=== PATIENT | female | born 1995 | race Caucasian/White ===

== ENCOUNTER → 2016-05-08 | Outpatient (CLI) | payer OTHER ==
[~2016-05-08] MED LIST: ACHD5005 PO; DCS100C PO; FERR-57 PO; LVF500T PO; METH0.2T45 PO; METR500T PO; MTR500T PO; SERT50TA PO
--- OUTSIDE RECORDS SUMMARY | 2016-05-08 12:58 | XMS REPORT | Continuity of Care Document ---
Author Author [facility] Organization [facility] Address Unknown Phone Unavailable Care Team Providers Care Billet Inspector Name Role Phone NO, LOCAL PHYSICIAN PCP Unavailable Insurance Providers Payer Name Policy Number Subscriber Name Relationship [facility] [id number] Renetta Elliott 18 Self / Same As Patient Advance Directives Directive Response Recorded Date/Time Advance Directives No 04/03/14 10:23pm Health Care Power of Fish Technologist No 04/03/14 10:23pm Organ Donor Yes 04/03/14 10:23pm Resuscitation Status Full Code 04/03/14 10:23pm Problems Medical Problems Problem Onset Date Status Abnormal computed tomography of abdomen and pelvis Unknown Active Medications Medication Dose Route Sig Days/Qty Instructions Order Date Discontinued Date Status Methylergonovine Maleate 0.2 Mg PO GIVE EVERY 6 HR ON SCHEDULE 12 Qty 11/19/12 04/03/14 Discontinued Metronidazole 500 Mg PO THREE TIMES A DAY 30 Qty 11/19/12 04/03/14 Discontinued Levofloxacin 500 Mg PO DAILY@11 10 Qty 11/19/12 04/03/14 Discontinued Ferrous Sulfate 325 Mg PO DAILY 30 Qty 11/19/12 12/01/12 Discontinued Sertraline HCl 50 Mg PO DAILY 12/01/12 04/03/14 Discontinued Docusate Sodium 100 Mg PO TWICE A DAY 60 Qty 04/06/14 Active Acetaminophen/Hydrocodone Bitart (Hydrocodone/APAP 5/325mg) 1 Tab PO EVERY 4HRS PRN pain 30 Qty 04/06/14 Active Metronidazole 1 Each PO TWICE A DAY 7 Days 04/06/14 Active Social History Social History Problem Response Recorded Date/Time Alcohol Use Denies Use 04/03/2014 10:23pm Recreational Drug Use No 04/03/2014 10:23pm Recent Foreign Travel No 04/03/2014 10:26pm Recent Infectious Disease Exposure No 04/03/2014 10:23pm Hospitalization with Isolation Denies 04/09/2014 2:51pm Sexually Transmitted Disease No 04/03/2014 10:23pm HIV/AIDS No 04/03/2014 10:23pm Smoking Status Never a Smoker 04/03/2014 10:26pm Query Response Start Date Stop Date Smoking Status Never a Smoker Hospital Discharge Instructions No hospital discharge instructions. Plan of Care No plan of care. Functional Status Query Response Date Recorded Patient Orientation Person Place Time Situation Normal For Age April 09, 2014 2:51pm Comprehension Ability Understands Concepts April 03, 2014 10:00pm Allergies, Adverse Reactions, Alerts Allergen Type Severity Reaction Status Last Updated No Known Drug Allergies Active 11/18/12 Immunizations Name Given Type Hepatitis A No Historical Hepatitis B Yes Historical Tetanus Booster (TDap) More than 5yrs Historical influenza, split (incl. purified surface antigen) 04/06/14 Administered influenza, split (incl. purified surface antigen) 04/06/14 Administered Vital Signs Acute Vital Signs Vital Response Date/Time Temperature (Fahrenheit) 97.1 degrees F (97.6 - 99.5) Temperature (Calculated Celsius) 36.82263 degrees C (36.4 - 37.5) Temperature Source Tympanic Pulse Rate (adult) 78 bpm (60 - 90) Pulse Rate (Adolescent 12-19yrs) 82 bpm (56 - 106) Respiratory Rate 18 bpm (12 - 24) O2 Sat by Pulse Oximetry 97 % (88 - 100) Respiratory Rate (Adolescent 12-19yrs) 18 bpm (15 - 20) Blood Pressure 96/59 mm Hg Blood Pressure Systolic (Adolescent 12-19yrs) 144 mm Hg (115 - 120) Pain Pain Intensity 3 Height (Feet) 5 feet Height (Inches) 4.00 inches Height (Calculated Centimeters) 162.355731 cm Weight (Pounds) 178 pounds Weight (Calculated Grams) 06341.443 gm Weight (Calculated Kilograms) 80.236527 kilograms Calculated BMI 30.55 Results Laboratory Results Test Name Result Units Flags Reference Collection Date/Time Result Date/ Time Comments White Blood Count 6.7 10^3/uL 4.3-11.0 04/05/2014 4:04/05/2014 5: 21am Red Blood Count 4.08 10^6/uL L 4.35-5.85 04/05/2014 4:04/05/2014 5: 21am Hemoglobin 12.6 G/DL 11.5-16.0 04/05/2014 4:04/05/2014 5:21am Hematocrit 37 % 35-52 04/05/2014 4:04/05/2014 5:21am Mean Corpuscular Volume 90 FL 80-99 04/05/2014 4:04/05/2014 5: 21am Mean Corpuscular Hemoglobin 31 PG 25-34 04/05/2014 4:04/05/2014 5: 21am Mean Corpuscular Hemoglobin Concent 34 G/DL 32-36 04/05/2014 4: 5:21am Red Cell Distribution Width 12.2 % 10.0-14.5 04/05/2014 4:2014 5:21am Platelet Count 202 10^3/uL 130-400 04/05/2014 4:04/05/2014 5:21am Mean Platelet Volume 10.9 FL H 7.4-10.4 04/05/2014 4:04/05/2014 5: 21am Neutrophils (%) (Auto) 52 % 42-75 04/05/2014 4:04/05/2014 5:21am Lymphocytes (%) (Auto) 37 % 12-44 04/05/2014 4:04/05/2014 5:21am Monocytes (%) (Auto) 9 % 0-12 04/05/2014 4:04/05/2014 5:21am Eosinophils (%) (Auto) 3 % 0-10 04/05/2014 4:04/05/2014 5:21am Basophils (%) (Auto) 0 % 0-10 04/05/2014 4:04/05/2014 5:21am Neutrophils # (Auto) 3.5 X 10^3 1.8-7.8 04/05/2014 4:22am 04/05/2014 5: 21am Lymphocytes # (Auto) 2.5 X 10^3 1.0-4.0 04/05/2014 4:04/05/2014 5: 21am Monocytes # (Auto) 0.6 X 10^3 0.0-1.0 04/05/2014 4:04/05/2014 5: 21am Eosinophils # (Auto) 0.2 10^3/uL 0.0-0.3 04/05/2014 4:22am 04/05/2014 5 :21am Basophils # (Auto) 0.0 10^3/uL 0.0-0.1 04/05/2014 4:04/05/2014 5: 21am Urine Color YELLOW 04/03/2014 9:05pm 04/03/2014 9:37pm Urine Clarity CLEAR 04/03/2014 9:05pm 04/03/2014 9:37pm Urine pH 5 5-9 04/03/2014 9:05pm 04/03/2014 9:37pm Urine Specific [place] 1.020 1.016-1.022 04/03/2014 9:05pm 2014 9:37pm Urine Protein NEGATIVE NEGATIVE 04/03/2014 9:05pm 04/03/2014 9:37pm Urine Glucose (UA) NEGATIVE NEGATIVE 04/03/2014 9:05pm 04/03/2014 9: 37pm Urine RBC (Auto) NEGATIVE NEGATIVE 04/03/2014 9:05pm 04/03/2014 9: 37pm Urine Ketones NEGATIVE NEGATIVE 04/03/2014 9:05pm 04/03/2014 9:37pm Urine Nitrite NEGATIVE NEGATIVE 04/03/2014 9:05pm 04/03/2014 9:37pm Urine Bilirubin NEGATIVE NEGATIVE 04/03/2014 9:05pm 04/03/2014 9: 37pm Urine Urobilinogen NORMAL MG/DL NORMAL 04/03/2014 9:05pm 04/03/2014 9: 37pm Urine Leukocyte Esterase 2+ * NEGATIVE 04/03/2014 9:05pm 04/03/2014 9: 37pm Urine RBC NONE /HPF 04/03/2014 9:05pm 04/03/2014 9:37pm Urine WBC 0-2 /HPF 04/03/2014 9:05pm 04/03/2014 9:37pm Urine Bacteria FEW /HPF * 04/03/2014 9:05pm 04/03/2014 9:37pm Urine Squamous Epithelial Cells 0-2 /HPF 04/03/2014 9:05pm 2014 9:37pm Urine Crystals NONE /LPF 04/03/2014 9:05pm 04/03/2014 9:37pm Urine Casts NONE /LPF 04/03/2014 9:05pm 04/03/2014 9:37pm Urine Mucus SMALL /LPF * 04/03/2014 9:05pm 04/03/2014 9:37pm Urine Culture Indicated YES 04/03/2014 9:05pm 04/03/2014 9:37pm Sodium Level 138 MMOL/L 135-145 04/05/2014 4:04/05/2014 5:59am Potassium Level 4.0 MMOL/L 3.6-5.0 04/05/2014 4:04/05/2014 5:59am Chloride Level 108 MMOL/L H 98-107 04/05/2014 4:04/05/2014 5:59am Carbon Dioxide Level 21 MMOL/L 21-32 04/05/2014 4:am 04/05/2014 5: 59am Blood Urea Nitrogen 12 MG/DL 7-18 04/05/2014 4:04/05/2014 5:59am Creatinine 0.86 MG/DL 0.60-1.30 04/05/2014 4:04/05/2014 5:59am BUN/Creatinine Ratio 14 04/05/2014 4:04/05/2014 5:59am Estimat Glomerular Filtration Rate > 60 04/05/2014 4:2014 5:59am GFR INTERPRETIVE DATA UNITS FOR ESTIMATED GFR (eGFR): mL/min/1.73 M2 REFERENCE RANGE FOR ESTIMATED GFR (eGFR) eGFR NORMAL eGFR >60 MODERATELY DECREASED eGFR 30-59 SEVERLY DECREASED eGFR 15-29 KIDNEY FAILURE <15 (OR DIALYSIS) Glucose Level 95 MG/DL 70-105 04/05/2014 4:04/05/2014 5:59am Calcium Level 8.8 MG/DL 8.5-10.1 04/05/2014 4:04/05/2014 5:59am Total Bilirubin 0.3 MG/DL 0.1-1.0 04/05/2014 4:22am 04/05/2014 5:59am Alkaline Phosphatase 56 U/L 40-136 04/05/2014 4:22am 04/05/2014 5:59am Aspartate Amino Transf (AST/SGOT) 19 U/L 5-34 04/05/2014 4:22am 2014 5:59am Alanine Aminotransferase (ALT/SGPT) 14 U/L 0-55 04/05/2014 4:22am 04/05 5:59am Total Protein 6.5 G/DL 6.4-8.2 04/05/2014 4:22am 04/05/2014 5:59am Albumin 3.5 G/DL 3.2-4.5 04/05/2014 4:22am 04/05/2014 5:59am Amylase Level 53 U/L 25-125 04/04/2014 4:31am 04/04/2014 5:45am Lipase 27 U/L 8-78 04/04/2014 4:31am 04/04/2014 5:45am Microbiology Results Procedure Source Result Collection Date/Time Result Date/Time Urine Culture Urine, Clean Catch PROBABLE GARDNERELLA VAGINALIS 04/03/2014 9 :05pm 04/06/2014 9:09am GARDNERELLA VAGINALIS 04/03/2014 9:05pm 04/06/2014 9:09am Procedures Procedure Status Date Provider(s) Diagnostic laparoscopy completed 04/05/14 YAJAIRA WATSON DO Encounters Encounter Location Date/Time Departed [facility] 04/03/14 9:50pm Registered Clinic [facility] 04/03/14 12:39pm Recent Diagnosis Abnormal computed tomography of abdomen and pelvis
[2016-05-08 13:38] LABS: BASOPHILS % (AUTO) 0 % (0-10); EOSINOPHILS # (AUTO) 0.1 10^3/uL (0.0-0.3); EOSINOPHILS % (AUTO) 1 % (0-10); LYMPHOCYTES # (AUTO) 2.3 X 10^3 (1.0-4.0); LYMPHOCYTES % (AUTO) 31 % (12-44); MEAN CORPUSCULAR HEMOGLOBIN 30 PG (25-34); MEAN CORPUSCULAR HGB CONC 33 G/DL (32-36); MEAN CORPUSCULAR VOLUME 91 FL (80-99); MEAN PLATELET VOLUME 11.1 FL (7.4-10.4); MONOCYTES # (AUTO) 0.4 X 10^3 (0.0-1.0); MONOCYTES % (AUTO) 6 % (0-12); NEUTROPHILS # (AUTO) 4.6 X 10^3 (1.8-7.8); NEUTROPHILS % (AUTO) 62 % (42-75); PLATELET COUNT 222 10^3/uL (130-400); RED BLOOD COUNT 4.35 10^6/uL (4.35-5.85); WHITE BLOOD COUNT 7.4 10^3/uL (4.3-11.0)
--- NOTE | 2016-05-08 13:58 | Diagnostic Imaging Report ---
INDICATION: Pelvic pain. TECHNIQUE: Transvaginal imaging. FINDINGS: Uterus measures 8.3 x 4.8 x 3.8 cm. There is hypertrophy of the endometrium measuring 1.4 cm. The right ovary measures 3.7 x 3.8 x 2.4 cm. There are a few small follicular cysts. The left ovary is not definitely demonstrated. There is a moderate amount of free fluid in the cul-de-sac. IMPRESSION: 1. Moderate amount of free fluid is noted within the pelvis. 2. Left ovary is not identified. 3. There is moderate hypertrophy of the endometrium. Dictated by: Dictated on workstation # [id number]
[2016-05-08 13:59] LABS: ALANINE AMINOTRANSFERASE 16 U/L (0-55); ALBUMIN 4.3 G/DL (3.2-4.5); ANION GAP 8 MMOL/L (5-14); ASPARTATE AMINO TRANSFERASE 20 U/L (5-34); BILIRUBIN,TOTAL 0.6 MG/DL (0.1-1.0); BLOOD UREA NITROGEN 12 MG/DL (7-18); BUN/CREATININE RATIO 13; CALCIUM 9.1 MG/DL (8.5-10.1); CARBON DIOXIDE 23 MMOL/L (21-32); CHLORIDE 107 MMOL/L (98-107); CREATININE SERUM 0.89 MG/DL (0.60-1.30); GFR ESTIMATED > 60; GLUCOSE 91 MG/DL (70-105); SODIUM 138 MMOL/L (135-145); TOTAL PROTEIN 7.1 G/DL (6.4-8.2)
== END ==
LOC: RAD 12:54
PROVIDERS: ATTEND Nurse Practitioner Family
DX: Z01.419 Encounter for gynecological examination (general) (routine) without abnormal findings (principal); R10.31 Right lower quadrant pain; R14.0 Abdominal distension (gaseous)
CPT/HCPCS: 36415; 76830; 76856; 80053; 85025

== ENCOUNTER → 2016-05-27 | Outpatient (CLI) | payer OTHER ==
[~2016-05-27] MED LIST changes: +CATHETER FLUSH 10 ML SYR IV PRN; +IOHEXOL 350 MG/ML 100 ML (OMNIPAQUE 350) VIAL IV ONE; +NS 100 ML (IVPB) BAG IV ONE
--- NOTE | 2016-05-27 12:05 | Diagnostic Imaging Report ---
PROCEDURE: CT abdomen and pelvis with contrast. TECHNIQUE: Multiple contiguous axial images were obtained through the abdomen and pelvis after administration of intravenous contrast. INDICATION: Colonic stricture. COMPARISON: 04/03/2014. FINDINGS: Lung bases are clear. Liver, gallbladder, bile ducts, spleen, adrenals, pancreas, and kidneys are all unremarkable. There is no abdominopelvic, mesenteric, or retroperitoneal adenopathy. The uterus, adnexa, and urinary bladder have an unremarkable appearance. There is no bowel obstruction. There is no identifiable mass. No perienteric or pericolonic edema. The osseous structures are unremarkable. IMPRESSION: Unremarkable abdominopelvic CT. Dictated by: Dictated on workstation # [id number]
== END ==
LOC: RAD 09:20
PROVIDERS: ATTEND Family Medicine
DX: R10.33 Periumbilical pain (principal); K56.69 Other intestinal obstruction
CPT/HCPCS: 74177

== ENCOUNTER 2017-05-06 17:53 | Inpatient (IN) | payer OTHER, MEDICAID ==
[~2017-05-06] VITALS: Ht 162.6 cm; Wt 108.0 kg
[~2017-05-06 17:53] MED LIST changes: -DOCU100C37 PO; -IBUP-1780 PO; -OXYC-465 PO; -PREN-53 PO
--- OUTSIDE RECORDS SUMMARY | 2017-05-06 17:59 | XMS REPORT ---
Author Author MATHIEU LIGHT [facility] Address [address] [place] [address] Care Team Providers Care Filler And Trimmer Name Role Phone MATHIEU LIGHT Unavailable PROBLEMS Type Condition ICD9-CM Code TCG46-VD Code Onset Dates Condition Status SNOMED Code Problem Colon stricture K56.69 Sep, Active 0187136 Problem Seasonal allergic rhinitis, unspecified allergic rhinitis trigger J30.2 Active 886082747 Problem Depressive disorder, not elsewhere classified 311 Active 56036256 Problem Active ALLERGIES No Known Allergies SOCIAL HISTORY Never Assessed PLAN OF CARE Activity Details Follow Up prn Reason: VITAL SIGNS Height 64 in 2016-05-18 Weight 197.2 lbs 2016-05-18 Temperature 98.2 degrees Fahrenheit 2016-05-18 Heart Rate 87 bpm 2016-05-18 Respiratory Rate 18 2016-05-18 BMI 33.85 kg/m2 2016-05-18 Blood pressure systolic 120 mmHg 2016-05-18 Blood pressure diastolic 70 mmHg 2016-05-18 MEDICATIONS Medication Instructions Dosage Frequency Start Date End Date Duration Status Zyrtec Allergy 10 MG Orally Once a day 1 tablet 24h Active Flonase 50 MCG/ACT Nasally twice a day 1 spray in each nostril 12h 13 Nov, 2015 Active RESULTS Name Result Date Reference Range CT Scan : Abdomen & Pelvis w/ Contrast 2016-05-27 PROCEDURES No Known procedures IMMUNIZATIONS No Known Immunizations MEDICAL (GENERAL) HISTORY Type Description Date Medical History fibrous ring around colon in 2014 ([place]) Surgical History orthopedic surgery-right wrist pinned, later removed s/p horseback riding accident Surgical History Fiber ring around colon removed 2014 Surgical History appendectomy 2014 Surgical History dilatation and curettage for SAB, retained placenta after SAB 2013 Hospitalization History surgeries only
--- OUTSIDE RECORDS SUMMARY | 2017-05-06 17:59 | XMS REPORT ---
Author Author MATHIEU LIGHT [facility] Address [address] [place] [address] Care Team Providers Care Clock And Watch Hands Dipper Name Role Phone MATHIEU LIGTH Unavailable PROBLEMS Type Condition ICD9-CM Code VLT07-CA Code Onset Dates Condition Status SNOMED Code Problem Colon stricture K56.69 Sep, Active 3042072 Problem Seasonal allergic rhinitis, unspecified allergic rhinitis trigger J30.2 Active 241374164 Problem Depressive disorder, not elsewhere classified 311 Active 10440880 ALLERGIES No Information SOCIAL HISTORY Never Assessed PLAN OF CARE VITAL SIGNS MEDICATIONS Unknown Medications RESULTS No Results PROCEDURES No Known procedures IMMUNIZATIONS No Known [...]
--- OUTSIDE RECORDS SUMMARY | 2017-05-06 17:59 | XMS REPORT ---
Author SALLY Rivera [facility] Address Unknown Phone Unavailable Care Team Providers Care Kiln Fireman Name Role Phone SALLY COVINGTON CP Unavailable Allergies, Adverse Reactions, Alerts Substance Reaction Event Type N.K.D.A. Info Not Available Non Drug Allergy Problems Problem Type Condition ICD-9 Code Onset Dates Condition Status Problem Abdominal pain, unspecified site 789.00 Active Problem examination or test, positive result V72.42 Active Problem Supervision of normal first V22.0 Active Assessment Bronchitis 490 Active Problem Pleurisy without mention of effusion or current tuberculosis 511.0 Active Problem Volume depletion, unspecified 276.50 Active Problem Tension headache 307.81 Active Problem Depressive disorder, not elsewhere classified 311 Active Problem Complete spontaneous complicated by genital tract and pelvic infection 634.02 Active Problem Unspecified antepartum hemorrhage, unspecified as to episode of care 641.90 Active Problem Acute pharyngitis 462 Active Medications Medication Code System Code Instructions Start Date End Date Status Dosage ProAir HFA [facility] [address]-26 108 (90 Base) MCG/ACT Inhalation every 4-6 hrs Nov 13, 2014 2 puffs as needed Zithromax Z-João [facility] [address]-28 250 MG Orally Once a day Nov 13, 2014 Nov 18, 2014 2 tablets on the first day, then 1 tablet daily for 4 days Procedures Procedure Coding System Code Date Office Visit, Est Pt., Level 3 CPT-4 34129 Nov 13, 2014 SOLUMEDROL (UP TO 125 MG) CPT-4 J2930 Nov 13, 2014 MEASURE BLOOD OXYGEN LEVEL CPT-4 27526 Nov 13, 2014 THER/PROPH/DIAG INJ, SC/IM CPT-4 88644 Nov 13, 2014 Vital Signs Date/Time: Nov 13, 2014 Temperature 98.7 F BMIPercentile 96.36 % Weight 195.0 lbs Height 64 in Oximetry 97 % Blood Pressure Diastolic 80 mmHg Blood Pressure Systolic 110 mmHg Cardiac Monitoring Heart Rate 86 bpm Wt Percentile 96.88 % BMI 33.47 Index Results No Known Results Summary Purpose e[employer] Submission
--- OUTSIDE RECORDS SUMMARY | 2017-05-06 17:59 | XMS REPORT ---
Author Author MATHIEU LIGHT [facility] Address [address] [place] [address] Care Team Providers Care Rug Renovator Name Role Phone MATHIEU LIGHT Unavailable PROBLEMS Type Condition ICD9-CM Code LFX90-SP Code Onset Dates Condition Status SNOMED Code Problem Colon stricture K56.69 Sep, Active 1835795 Problem Seasonal allergic rhinitis, unspecified allergic rhinitis trigger J30.2 Active 185608880 Problem Depressive disorder, not elsewhere classified 311 Active 23902679 ALLERGIES No Information SOCIAL HISTORY Never Assessed PLAN OF CARE VITAL SIGNS MEDICATIONS Medication Instructions Dosage Frequency Start Date End Date Duration Status Amitiza 8 MCG Orally Twice a day 1 capsule with food 12h May, May, 0 days Active RESULTS No Results PROCEDURES No Known procedures IMMUNIZATIONS No Known Immunizations MEDICAL (GENERAL) HISTORY Type Description Date Medical History fibrous ring around colon in 2014 ([place]) Surgical History orthopedic surgery-right wrist pinned, later removed s/p horseback riding accident Surgical History Fiber ring around colon removed 2014 Surgical History appendectomy 2014 Surgical History dilatation and curettage for SAB, retained placenta after SAB 2012 Hospitalization History surgeries only
[2017-05-06] MEDS ORDERED: TERBUTALINE INJ 1 MG/ML (BRETHINE) AMP SC PRN (18:00)
[2017-05-06] MEDS ORDERED: ZOLPIDEM 5 MG (AMBIEN) TAB PO PRN (18:00)
[2017-05-06] MEDS ORDERED: ONDANSETRON 4 MG/2 ML (SDV) Z0FRAN IVP PRN (18:00)
--- OUTSIDE RECORDS SUMMARY | 2017-05-06 18:00 | XMS REPORT ---
Author Author FARZANA HOANG [facility] Address [address] [place] [address] Care Team Providers Care Printing Services Coordinator Name Role Phone FARZANA HOANG Unavailable PROBLEMS Type Condition ICD9-CM Code RFZ21-JE Code Onset Dates Condition Status SNOMED Code Problem Colon stricture K56.69 Sep, Active 7961398 Problem Seasonal allergic rhinitis, unspecified allergic rhinitis trigger J30.2 Active 270359941 Problem Depressive disorder, not elsewhere classified 311 Active 98349713 ALLERGIES No Known Allergies SOCIAL HISTORY Never Assessed PLAN OF CARE Activity Details Follow Up prn Reason: VITAL SIGNS Height 64 in 2016-04-30 Weight 192.0 lbs 2016-04-30 Temperature 97.9 degrees Fahrenheit 2016-04-30 Heart Rate 90 bpm 2016-04-30 Respiratory Rate 16 2016-04-30 BMI 32.95 kg/m2 2016-04-30 Blood pressure systolic 112 mmHg 2016-04-30 Blood pressure diastolic 62 mmHg 2016-04-30 MEDICATIONS Unknown Medications RESULTS Name Result Date Reference Range KUB 2016-05-01 PROCEDURES No Known procedures IMMUNIZATIONS No Known [...]
--- OUTSIDE RECORDS SUMMARY | 2017-05-06 18:00 | XMS REPORT ---
Author Author EZEQUIEL CLAYTON [facility] Address [address] [place] [address] Care Team Providers Care Logistics Research Engineer Name Role Phone EZEQUIEL CLAYTON Unavailable PROBLEMS Type Condition ICD9-CM Code ZJH56-BK Code Onset Dates Condition Status SNOMED Code Problem Seasonal allergic rhinitis, unspecified allergic rhinitis trigger J30.2 Active 006478527 Problem Depressive disorder, not elsewhere classified 311 Active 36501872 Assessment Seasonal allergic rhinitis, unspecified allergic rhinitis trigger J30.2 Nov, Active 588336133 ALLERGIES Substance Reaction Event Type Date Status N.K.D.A. Unknown Non Drug Allergy Nov, Unknown SOCIAL HISTORY No smoking Hx information available PLAN OF CARE VITAL SIGNS Height 64 in 2015-11-19 Weight 192 lbs 2015-11-19 Heart Rate 95 bpm 2015-11-19 Respiratory Rate 16 2015-11-19 BMI 32.95 kg/m2 2015-11-19 Blood pressure systolic 128 mmHg 2015-11-19 Blood pressure diastolic 70 mmHg 2015-11-19 MEDICATIONS Medication Instructions Dosage Frequency Start Date End Date Duration Status Zyrtec Allergy 10 MG Orally Once a day 1 tablet 24h Active Flonase 50 MCG/ACT Nasally twice a day 1 spray in each nostril 12h 13 Nov, 2015 Active RESULTS No Results PROCEDURES Procedure Date Ordered Related Diagnosis Body Site Office Visit, Est Pt., Level 3 Nov 19, 2015 IMMUNIZATIONS No Known Immunizations
--- OUTSIDE RECORDS SUMMARY | 2017-05-06 18:00 | XMS REPORT ---
Author Author MATHIEU LIGHT [facility] Address [address] [place] [address] Care Team Providers Care Crate Icer Name Role Phone MATHIEU LIGHT Unavailable PROBLEMS Type Condition ICD9-CM Code JFU61-BO Code Onset Dates Condition Status SNOMED Code Problem Colon stricture K56.69 Sep, Active 4990156 Problem Seasonal allergic rhinitis, unspecified allergic rhinitis trigger J30.2 Active 294342296 Problem Depressive disorder, not elsewhere classified 311 Active 18554059 ALLERGIES No Information SOCIAL HISTORY Never Assessed PLAN OF CARE VITAL SIGNS MEDICATIONS Medication Instructions Dosage Frequency Start Date End Date Duration Status Linzess 290 MCG Orally Once a day at least 30 min before 1st meal 1 capsule May, 30 day(s) Active RESULTS No Results PROCEDURES No Known [...]
--- OUTSIDE RECORDS SUMMARY | 2017-05-06 18:00 | XMS REPORT | Continuity of Care Document ---
Author Author [facility] Address Unknown Phone Unavailable Allergies Active Description Code Type Severity Reaction Onset Reported/Identified Relationship to Patient Clinical Status Yes No Known Drug Allergies [id number] Drug Allergy Unknown N/A 11/18/2012 Medications There is no data. Problems Date Dx Coded Attending Type Code Diagnosis Diagnosed By 12/23/2009 V05.8 GARDASIL 12/23/2009 V05.8 GARDASIL 12/23/2009 V05.8 GARDASIL 12/23/2009 MATHIEU LIGHT DO V05.8 GARDASIL 12/23/2009 MATHIEU LIGHT DO V05.8 GARDASIL 12/23/2009 MATHIEU LIGHT DO V05.8 GARDASIL 11/27/2011 V72.42 EXAMINATION OR TEST POSITIVE RESULT 11/27/2011 V72.42 EXAMINATION OR TEST POSITIVE RESULT 11/27/2011 V72.42 EXAMINATION OR TEST POSITIVE RESULT 11/27/2011 MATHIEU LIGHT DO V72.42 EXAMINATION OR TEST POSITIVE RESULT 11/27/2011 MATHIEU LIGHT DO K V72.42 EXAMINATION OR TEST POSITIVE RESULT 11/27/2011 MATHIEU LIGHT DO K V72.42 EXAMINATION OR TEST POSITIVE RESULT 10/31/2012 V22.0 , NORMAL FIRST 10/31/2012 V22.0 , NORMAL FIRST 10/31/2012 V22.0 , NORMAL FIRST 10/31/2012 ED LIGHT DOA K V22.0 , NORMAL FIRST 10/31/2012 ED LIGHT DOA K V22.0 , NORMAL FIRST 10/31/2012 ED LIGHT DOA K V22.0 , NORMAL FIRST 11/17/2012 276.50 VOLUME DEPLETION UNSPECIFIED 11/17/2012 641.90 COMPL OF - BLEEDING 11/17/2012 MATHIEU LIGHT DO K 276.50 VOLUME DEPLETION UNSPECIFIED 11/17/2012 MATHIEU LIGHT DO K 641.90 COMPL OF - BLEEDING 11/17/2012 LIGHT DOEDA K 276.50 VOLUME DEPLETION UNSPECIFIED 11/17/2012 KULDEEP REIS, MATHIEU K 641.90 COMPL OF - BLEEDING 11/17/2012 LIGHT DO MATHIEU K 276.50 VOLUME DEPLETION UNSPECIFIED 11/17/2012 LIGHT DO, MATHIEU K 641.90 COMPL OF - BLEEDING 11/19/2012 LIGHT DO MATHIEU K Ot 041.89 11/19/2012 LIGHT DO MATHIEU K Ot 288.60 11/19/2012 LIGHT DO MATHIEU K Ot 599.0 11/19/2012 LIGHT DO MATHIEU K Ot 616.10 11/19/2012 LIGHT DO MATHIEU K Ot 617.9 11/19/2012 LIGHT DO MATHIEU K Ot 634.01 11/19/2012 LIGHT DO MATHIEU K Ot 634.71 11/25/2012 LIGHT DO MATHIEU K 311 DEPRESSIVE DISORDER NOT ELSEWHERE CLASSIFIED 11/25/2012 KULDEEP REIS MATHIEU K 634.02 SPONTANEOUS COMPLETE COMPLICATED BY GENITAL TRACT AND PELVIC INFECTION 11/25/2012 KULDEEP REIS MATHIEU K 311 DEPRESSIVE DISORDER NOT ELSEWHERE CLASSIFIED 11/25/2012 LIGHT DO MATHIEU K 634.02 SPONTANEOUS COMPLETE COMPLICATED BY GENITAL TRACT AND PELVIC INFECTION 11/25/2012 LIGHT DO MATHIEU K 311 DEPRESSIVE DISORDER NOT ELSEWHERE CLASSIFIED 11/25/2012 LIGHT DO MATHIEU K 634.02 SPONTANEOUS COMPLETE COMPLICATED BY GENITAL TRACT AND PELVIC INFECTION 01/13/2013 KULDEEP REIS MATHIEU K 307.81 TENSION HEADACHE 01/13/2013 KULDEEP REIS MATHIEU K 511.0 PLEURISY WITHOUT EFFUSION OR CURRENT TUBERCULOSIS 01/13/2013 ED LIGHT DOA K 307.81 TENSION HEADACHE 01/13/2013 KULDEEP REIS, MATHIEU K 511.0 PLEURISY WITHOUT EFFUSION OR CURRENT TUBERCULOSIS 01/18/2013 ED LIGHT DOA K 462 ACUTE PHARYNGITIS 04/04/2014 SALLY COVINGTON Ot 789.00 04/06/2014 ED LIGHT DOA K Ot 540.9 ACUTE APPENDICITIS NOS 04/06/2014 KULDEEP REIS MATHIEU K Ot 560.81 INTEST ADHES W [id number]-DH/INF 04/06/2014 ED LIGHT DOA K Ot 620.2 OVARIAN CYST NEC/NOS 05/08/2016 NADYA, SALLY L ELECTRONIC SEMICONDUCTOR PROCESSOR Ot 789.00 ABDOMINAL PAIN, UNSPECIFIED SITE 05/10/2016 MARTINEZ-CASHERO FARZANA N ELECTRONIC SEMICONDUCTOR PROCESSOR Ot R10.31 RIGHT LOWER QUADRANT PAIN 05/10/2016 MARTINEZ-CASHERO, FARZANA N ELECTRONIC SEMICONDUCTOR PROCESSOR Ot R14.0 ABDOMINAL DISTENSION (GASEOUS) 05/10/2016 WINSOME FARZANA N ELECTRONIC SEMICONDUCTOR PROCESSOR Ot Z01.419 ENCNTR FOR PARALEGAL SECRETARY EXAM (GENERAL) (ROUTINE) 05/14/2016 MARTINEZ-CASHRIGOBERTO FARZANA N ELECTRONIC SEMICONDUCTOR PROCESSOR Ot R10.31 RIGHT LOWER QUADRANT PAIN 05/14/2016 MARTINEZ-CASHERO, FARZANA N ELECTRONIC SEMICONDUCTOR PROCESSOR Ot R14.0 ABDOMINAL DISTENSION (GASEOUS) 05/14/2016 MARTINEZ-CASHERO, FARZANA N ELECTRONIC SEMICONDUCTOR PROCESSOR Ot Z01.419 ENCNTR FOR PARALEGAL SECRETARY EXAM (GENERAL) (ROUTINE) 05/28/2016 KULDEEP REIS MATHIEU K Ot K56.69 OTHER INTESTINAL OBSTRUCTION 05/28/2016 KULDEEP REIS MATHIEU K Ot R10.33 PERIUMBILICAL PAIN 06/03/2016 MARTINEZ-MICHELLE FARZANA N ELECTRONIC SEMICONDUCTOR PROCESSOR Ot R10.31 RIGHT LOWER QUADRANT PAIN 06/03/2016 MARTINEZ-CASHRIGOBERTO, FARZANA N ELECTRONIC SEMICONDUCTOR PROCESSOR Ot R14.0 ABDOMINAL DISTENSION (GASEOUS) 06/03/2016 MICHELLE-MICHELLE FARZANA N ELECTRONIC SEMICONDUCTOR PROCESSOR Ot Z01.419 ENCNTR FOR PARALEGAL SECRETARY EXAM (GENERAL) (ROUTINE) 06/10/2016 LIGHT DO MATHIEU K Ot K56.69 OTHER INTESTINAL OBSTRUCTION 06/10/2016 KULDEEP DO MATHIEU K Ot R10.33 PERIUMBILICAL PAIN 05/05/2017 NADYASALLY Haley ELECTRONIC SEMICONDUCTOR PROCESSOR Ot 789.00 ABDOMINAL PAIN, UNSPECIFIED SITE 05/05/2017 MARTINEZ-ALLAERO FARZANA N ELECTRONIC SEMICONDUCTOR PROCESSOR Ot R10.31 RIGHT LOWER QUADRANT PAIN 05/05/2017 MARTINEZ-CASHERO FARZANA N ELECTRONIC SEMICONDUCTOR PROCESSOR Ot R14.0 ABDOMINAL DISTENSION (GASEOUS) 05/05/2017 MARTINEZ-CASHERO FARZANA N ELECTRONIC SEMICONDUCTOR PROCESSOR Ot Z01.419 ENCNTR FOR PARALEGAL SECRETARY EXAM (GENERAL) (ROUTINE) 05/05/2017 LIGHT DO MATHIEU K Ot K56.69 OTHER INTESTINAL OBSTRUCTION 05/05/2017 LIGHT DO MATHIEU K Ot R10.33 PERIUMBILICAL PAIN Procedures Code [place] [address] ROUTINE VENIPUNCTURE 10/31/2012 27199 UA OB DIP 10/31/2012 07140 URINE TEST (IN- HOUSE) 10/31/2012 45902 TSH 11/01/2012 98624 CBC 11/01/2012 35412 SYPHILLIS-[facility] 11/01/2012 17342 HIV ANTIBODIES (RML) 11/01/2012 99519 RUBELLA ANTIBODY, IGG 11/01/2012 00623 ANTIBODY SCREEN (order) 11/01/2012 96636 BLOOD TYPE/Rh FACTOR 11/01/2012 23039 CULTURE URINE 11/01/2012 25121 HEP B SURFACE ANTIGEN ([facility] ) 11/01/2012 08344 ROUTINE VENIPUNCTURE 11/10/2012 99995 TRICHOMONAS (IN-HOUSE) 11/10/2012 15843 UA OB DIP 11/10/2012 30211 OB - COMPLETE >14 WEEKS 11/11/2012 57360 CULTURE UROGENITAL 11/11/2012 07725 GC/CHLAM PROBE ([facility]) 11/11/2012 TETRA TETRA SCREEN 11/11/2012 08596 IV INFUSION 11/17/2012 J0696 ROCEPHIN INJ 11/17/2012 09217 UA LONG DIP 11/17/2012 97244 STREP A (IN-HOUSE) 11/17/2012 Results Test Result Range Complete blood count (CBC) with automated white blood cell (WBC) differential - 05/08/16 13:30 Blood leukocytes automated count (number/volume) 7.4 10*3/uL 4.3-11.0 Blood erythrocytes automated count (number/volume) 4.35 10*6/uL 4.35-5.85 Venous blood hemoglobin measurement (mass/volume) 13.2 g/dL 11.5-16.0 Blood hematocrit (volume fraction) 40 % 35-52 Automated erythrocyte mean corpuscular volume 91 [foz_us] 80-99 Automated erythrocyte mean corpuscular hemoglobin (mass per erythrocyte) 30 pg 25-34 Automated erythrocyte mean corpuscular hemoglobin concentration measurement ( mass/volume) 33 g/dL 32-36 Automated erythrocyte distribution width ratio 12.0 % 10.0-14.5 Automated blood platelet count (count/volume) 222 10*3/uL 130-400 Automated blood platelet mean volume measurement 11.1 [foz_us] 7.4-10.4 Automated blood neutrophils/100 leukocytes 62 % 42-75 Automated blood lymphocytes/100 leukocytes 31 % 12-44 Blood monocytes/100 leukocytes 6 % 0-12 Automated blood eosinophils/100 leukocytes 1 % 0-10 Automated blood basophils/100 leukocytes 0 % 0-10 Blood neutrophils automated count (number/volume) 4.6 10*3 1.8-7.8 Blood lymphocytes automated count (number/volume) 2.3 10*3 1.0-4.0 Blood monocytes automated count (number/volume) 0.4 10*3 0.0-1.0 Automated eosinophil count 0.1 10*3/uL 0.0-0.3 Automated blood basophil count (count/volume) 0.0 10*3/uL 0.0-0.1 Comprehensive metabolic panel - 05/08/16 13:30 Serum or plasma sodium measurement (moles/volume) 138 mmol/L 135-145 Serum or plasma potassium measurement (moles/volume) 4.0 mmol/L 3.6-5.0 Serum or plasma chloride measurement (moles/volume) 107 mmol/L 98-107 Carbon dioxide 23 mmol/L 21-32 Serum or plasma anion gap determination (moles/volume) 8 mmol/L 5-14 Serum or plasma urea nitrogen measurement (mass/volume) 12 mg/dL 7-18 Serum or plasma creatinine measurement (mass/volume) 0.89 mg/dL 0.60-1.30 Serum or plasma urea nitrogen/creatinine mass ratio 13 NRG Serum or plasma creatinine measurement with calculation of estimated glomerular filtration rate > NRG Serum or plasma glucose measurement (mass/volume) 91 mg/dL 70-105 Serum or plasma calcium measurement (mass/volume) 9.1 mg/dL 8.5-10.1 Serum or plasma total bilirubin measurement (mass/volume) 0.6 mg/dL 0.1-1.0 Serum or plasma alkaline phosphatase measurement (enzymatic activity/volume) 70 U/L 40-136 Serum or plasma aspartate aminotransferase measurement (enzymatic activity/ volume) 20 U/L 5-34 Serum or plasma alanine aminotransferase measurement (enzymatic activity/volume ) 16 U/L 0-55 Serum or plasma protein measurement (mass/volume) 7.1 g/dL 6.4-8.2 Serum or plasma albumin measurement (mass/volume) 4.3 g/dL 3.2-4.5 Encounters ACCT No. Visit Date/Time Discharge Status Pt. Type Provider Facility Loc./Unit Complaint [id number] 01/18/2013 10:57:00 01/18/2013 23:59:59 CLS Outpatient MATHIEU LIGHT DO [id number] 01/13/2013 09:41:00 01/13/2013 23:59:59 CLS Outpatient MATHIEU LIGHT DO [id number] 11/25/2012 15:15:00 11/25/2012 23:59:59 CLS Outpatient MATHIEU LIGHT DO [id number] 11/17/2012 13:35:00 Document Registration [id number] 11/10/2012 15:55:00 Document Registration [id number] 10/31/2012 15:57:00 Document Registration [id number] 04/29/2017 08:54:00 04/29/2017 23:59:59 CLS Preadmit LAUREN WOODSON [facility] RAD [id number] EXCESSIVE GROWTH [id number] 05/27/2016 09:20:00 05/27/2016 23:59:59 CLS Outpatient MATHIEU LIGHT DO [facility] RAD COLON STRICTURE, PERIUMBILICAL ABD PAIN [id number] 05/08/2016 12:54:00 05/08/2016 23:59:59 CLS Outpatient FARZANA SCHUMACHER ELECTRONIC SEMICONDUCTOR PROCESSOR [facility] RAD PELVIC PAIN AND ABD DISTENTION [id number] 04/03/2014 21:50:00 04/06/2014 09:45:00 DIS Outpatient MATHIEU LIGHT DO [facility] SDC ABD PAIN,ABNORMAL CT OF ABDOMEN [id number] 04/03/2014 12:39:00 04/03/2014 23:59:59 CLS Outpatient SALLY COVINGTON ELECTRONIC SEMICONDUCTOR PROCESSOR [facility] RAD LQ PAIN [id number] 12/01/2012 09:30:00 12/02/2012 20:45:00 DIS Outpatient [id number] 11/18/2012 13:10:00 11/19/2012 12:54:00 DIS Inpatient MATHIEU LIGHT DO [facility] WS
[2017-05-06 18:04] VITALS: BP 146/78
[2017-05-06] MEDS ORDERED: PREN-53 PO (18:05)
[2017-05-06 18:28] LABS: BASOPHILS % (AUTO) 0 % (0-10); EOSINOPHILS # (AUTO) 0.1 10^3/uL (0.0-0.3); EOSINOPHILS % (AUTO) 0 % (0-10); HEMATOCRIT 36 % (35-52); HEMOGLOBIN 12.4 G/DL (11.5-16.0); LYMPHOCYTES # (AUTO) 2.1 X 10^3 (1.0-4.0); LYMPHOCYTES % (AUTO) 15 % (12-44); MEAN CORPUSCULAR HEMOGLOBIN 33 PG (25-34); MEAN CORPUSCULAR HGB CONC 34 G/DL (32-36); MEAN CORPUSCULAR VOLUME 95 FL (80-99); MONOCYTES # (AUTO) 0.8 X 10^3 (0.0-1.0); MONOCYTES % (AUTO) 6 % (0-12); NEUTROPHILS # (AUTO) 11.5 X 10^3 (1.8-7.8); NEUTROPHILS % (AUTO) 80 % (42-75); PLATELET COUNT 223 10^3/uL (130-400); RED BLOOD COUNT 3.82 10^6/uL (4.35-5.85); RED CELL DISTRIBUTION WIDTH 12.7 % (10.0-14.5); WHITE BLOOD COUNT 14.5 10^3/uL (4.3-11.0)
[2017-05-06] MEDS ORDERED: LACTATED RINGERS 1,000 ML IV ONE (18:30)
[2017-05-06] MEDS ORDERED: INFLUENZA TRIvalent 2017-2018 0.5 ML/45 MCG SYR IM ONE (19:30)
[2017-05-06] MEDS ORDERED: AMPICILLIN INJECTION 2,000 MG in NS (IVPB) 100 ML IV SCH (19:32)
[2017-05-06] MEDS ORDERED: BUTORPHANOL INJ 2 MG/ML (STADOL) VIAL IV PRN (19:45)
[2017-05-06 20:05] VITALS: BP 122/67
[2017-05-06] MEDS: MISOPROSTOL 100 MCG (CYTOTEC) TAB PV SCH (20:10)
[2017-05-06] MEDS: CATHETER FLUSH 10 ML SYR IV PRN (22:07)
[2017-05-06] MEDS ORDERED: NS (IVPB) 100 ML ONE (23:44)
[2017-05-07] VITALS (13 sets, daily range): BP systolic 120–136; BP diastolic 60–84
[2017-05-07] MEDS: MISOPROSTOL 100 MCG (CYTOTEC) TAB PV SCH ×3 (00:05→08:30)
[2017-05-07] MEDS: AMPICILLIN INJECTION 1,000 MG in NS (IVPB) 100 ML IV SCH ×3 (00:05→08:30)
[2017-05-07] MEDS ORDERED: MISOPROSTOL 100 MCG (CYTOTEC) TAB ONE (08:23)
--- NOTE | 2017-05-07 11:52 | History & Physical-OB ---
OB - Chief Complaint & HPI Date/Time Date of Admission: Date of Admission: May 06, 2017 at 17:53 Time Seen by Provider: 11:45 Chief Complaint/History OB-Reason for Admission/Chief: Induction of Labor (induction of labor for oligohydramnios) Hx : 2 Hx Para: 0 Hx Last Menstrual Period: 07/29/16 Expected Date of Delivery: May 17, 2017 Gestational Age in Weeks: 38 Gestational Age in Days: 3 Indication for induction: other (oligohydramnios) Admission Nurse Assessment Rev: Yes Allergies and Home Medications Allergies Coded Allergies: No Known Drug Allergies (Unverified , 11/18/12) Patient Home Medication List Home Medication List Reviewed: Yes OB - History Hx of Present Care: Yes Ultrasounds: Normal mid trimester US, Abnormal US findings Abnormal Ultrasound Findings: US 05/06/16 showed oligohydramnios with FATEMEH 5.1 and deepest vertical pocket only 1.7 cm Obstetrical Complications: Other (oligohydramnios) Medical Complications: None Information Induced Hypertension: No Maternal Gestational Diabetes: No Hemorrhage: No Obstetrical History Hx : 2 Hx Para: 0 Hx # Term Pregnancies: 0 Hx # Pregnancies: 0 Number of Living Children: 0 Hx Termination: No Hx Total # of Abortions (Spona: 1 (17 wks, with later D&C for retained placenta ) Hx Multiple Gestation: No Hx Ectopic : No Hx Stillbirth: No Hx Complication: No Hx Induced Hypertens: No Hx Maternal Gestational Diabet: No Hx Hemorrhage: No Delivery History Hx Dystocia: No Hx Forceps Assisted Delivery: No Hx Vacuum Extraction Assisted: No Hx Placenta Abnormality: No Hx Distress: No Hx Large For Gestational Age I: No Hx Small for Gestational Age I: No Hx Section: No Hx Vaginal Delivery Post C-Sec: No Hx Blood Disorders: No Adverse Rxn to Tranfusion: No Patient Past Medical History PMH: SAB at 17 wks gestation Depression Seasonal Allergies PSH: right wrist pin placed secondary to fracture, subsequent removal D&C for retained placenta after 17 wk SAB (2012) Colon Stricture Removal (2014) - Kapoor Appendectomy Social History/Family History HIV/AIDS: No Recent Infectious Disease Expo: No Sexually Transmitted Disease: No Alcohol Use: Denies Use Recreational Drug Use: No Smoking Cessation: Never smoker 2nd Hand Smoke Exposure: No Immunizations Hepatitis A: No Hepatitis B: Yes Tetanus Booster (TDap): Less than 5yrs Rubella: immune RPR/VDRL: Negative GBS Status: Positive HBsAG: Negative OB - Admission Exam Physical Exam Vitals: Vital Signs 05/07/17 08:30 Temp 97.6 Pulse 77 Resp 18 B/P (MAP) 123/77 (92) O2 Delivery Room Air HEENT: NCAT Heart: Rhythm Normal Lungs: Clear Abdomen: Gravid Extremities: Edema Reflexes: Normal Cervical Dilatation: Fingertip Effacement: 50% Station: -3 Membranes: Intact Heart Rate: 130's Contractions on Admission: None Carrasco Scoring Tool (Modified) Dilation (cm): 0/Closed (0) Effacement (%): 31-51% (1) Descent/Station: -3 (0) Cervix Consistency: Medium(1) Cervix Position: Middle/Mid-Position (1) Subtract 1 point for: Nulliparity (-1) Carrasco Score: 2 Labs Laboratory Tests Test 05/06/17 18:20 Range/Units White Blood Count 14.5 H 4.3-11.0 10^3/uL Red Blood Count 3.82 L 4.35-5.85 10^6/uL Hemoglobin 12.4 11.5-16.0 G/DL Hematocrit 36 35-52 % Mean Corpuscular Volume 95 80-99 FL Mean Corpuscular Hemoglobin 33 25-34 PG Mean Corpuscular Hemoglobin Concent 34 32-36 G/DL Red Cell Distribution Width 12.7 10.0-14.5 % Platelet Count 223 130-400 10^3/uL Mean Platelet Volume 11.0 H 7.4-10.4 FL Neutrophils (%) (Auto) 80 H 42-75 % Lymphocytes (%) (Auto) 15 12-44 % Monocytes (%) (Auto) 6 0-12 % Eosinophils (%) (Auto) 0 0-10 % Basophils (%) (Auto) 0 0-10 % Neutrophils # (Auto) 11.5 H 1.8-7.8 X 10^3 Lymphocytes # (Auto) 2.1 1.0-4.0 X 10^3 Monocytes # (Auto) 0.8 0.0-1.0 X 10^3 Eosinophils # (Auto) 0.1 0.0-0.3 10^3/uL Basophils # (Auto) 0.0 0.0-0.1 10^3/uL OB - Assessment/Plan/Diagnosis Assessment Assessment: group B positive strep, induction of labor Admission Dx Term IUP at 38 3/7 wks gestation Oligohydramnios GBS Positive Induction of Labor Admission Status: Inpatient Order (span 2 midnights) Reason for Inpatient Admission: Oligohydramnios in Term Plan Plan: Induction Induction Method: per Misoprostol Protocol Copy Copies To 1: QASIM DELGADO MARGARET E DO May 07, 2017 11:52
--- NOTE | 2017-05-07 11:53 | Labor Progress Note ---
Labor Progress Note Labor Progress Note Date Seen by Provider: May 07, 2017 Time Seen by Provider: 11:05 Subjective: Pt denies complaints. Is anxious to proceed with delivery. Objective: Cervical exam: 1 cm Consistency: medium Position: mid-position Presentation: -3 heart tones:130 beats per minute, moderate variability, reassuring and reactive, Category I Tocometer: 3 ctx/10 minutes Assessment/Plan: Renetta Elliott is a 22 at 38 4/7 wks admitted last night for induction of labor secondary to oligohydramnios with FATEMEH 5.1 and deepest vertical pocket <2 cm (1.7). She is GBS positive and has been treated with Ampicillin for routine GBS prophylaxis. Cervix remains unfavorable. Discussed options with patient, including cervadil for further cervical ripening as patient cervix remains unfavorable for induction and she would benefit from additional ripening before pitocin, continued cytotec induction although patient has shown very slow progress at this point after 4 doses and would recommend attempting further ripening with cervadil over continued cytotec, or given minimal progress and that head remains unengaged patient could elect for surgical delivery, although that is also not without risks, which were discussed - including but not limited to pain, bleeding, infection, damage to other internal organs. Patient requests to proceed with surgical delivery now. At 11:50 Dr. Coyne contacted and consulted for surgical delivery via primary section secondary to failed induction/failure to progress and patient desire to proceed with surgical delivery and not further attempts at induction of labor. He is available and in agreement. Will prepare patient for non-emergent unscheduled surgical delivery. Vitals - Labs Vital Signs - I&O Vital Signs Date Time Temp Pulse Resp B/P (MAP) Pulse Ox O2 Delivery O2 Flow Rate FiO2 05/07/17 08:30 97.6 77 18 123/77 (92) Room Air 05/07/17 04:12 97.8 81 18 136/68 (90) Room Air 05/07/17 00:04 98.2 90 18 120/67 (84) Room Air 05/06/17 20:05 98.7 87 18 122/67 (85) Room Air 05/06/17 18:04 98.7 106 18 146/78 (100) I & O 05/07/17 07:00 Intake Total 2100 ml Balance 2100 ml Labs Laboratory Tests 05/06/17 18:20: White Blood Count 14.5H, Red Blood Count 3.82L, Hemoglobin 12.4, Hematocrit 36, Mean Corpuscular Volume 95, Mean Corpuscular Hemoglobin 33, Mean Corpuscular Hemoglobin Concent 34, Red Cell Distribution Width 12.7, Platelet Count 223, Mean Platelet Volume 11.0H, Neutrophils (%) (Auto) 80H, Lymphocytes (%) (Auto) 15, Monocytes (%) (Auto) 6, Eosinophils (%) (Auto) 0, Basophils (%) (Auto) 0, Neutrophils # (Auto) 11.5H, Lymphocytes # (Auto) 2.1, Monocytes # (Auto) 0.8, Eosinophils # (Auto) 0.1, Basophils # (Auto) 0.0 QASIM DELGADO DO May 07, 2017 11:53
--- NOTE | 2017-05-07 11:53 | Labor Progress Note ---
Labor Progress Note Labor Progress Note Date Seen by Provider: May 07, 2017 Time Seen by Provider: 06:45 Subjective: Pt denies complaints. Objective: SVE per RN - fingertip/50/-2 Presentation: Vertex heart tones: 130 beats per minute, moderate variability, reassuring and reactive Tocometer: 3 ctx/10 minutes Assessment/Plan: Renetta Elliott is a 22 at 38 4/7 wks admitted last night for induction of labor secondary to oligohydramnios with FATEMEH 5.1 and deepest vertical pocket <2 cm (1.7). She is GBS positive and has been treated with Ampicillin for routine GBS prophylaxis. Given that her cervix remains unfavorable, will have cytotec dose #4 placed at 0800 as planned and will re- evaluate patient around 11:00. Patient is agreeable. FHR Category I. Contractions mild, none felt by patient. CEFM/TOCO Pain medication or epidural if requested. Vitals - Labs Vital Signs - I&O Vital Signs Date Time Temp Pulse Resp B/P (MAP) Pulse Ox O2 Delivery O2 Flow Rate FiO2 05/07/17 08:30 97.6 77 18 123/77 (92) Room Air 05/07/17 04:12 97.8 81 18 136/68 (90) Room Air 05/07/17 00:04 98.2 90 18 120/67 (84) Room Air 05/06/17 20:05 98.7 87 18 122/67 (85) Room Air 05/06/17 18:04 98.7 106 18 146/78 (100) I & O 05/07/17 07:00 Intake Total 2100 ml Balance 2100 ml Labs Laboratory Tests 05/06/17 18:20: White Blood Count 14.5H, Red Blood Count 3.82L, Hemoglobin 12.4, Hematocrit 36, Mean Corpuscular Volume 95, Mean Corpuscular Hemoglobin 33, Mean Corpuscular Hemoglobin Concent 34, Red Cell Distribution Width 12.7, Platelet Count 223, Mean Platelet Volume 11.0H, Neutrophils (%) (Auto) 80H, Lymphocytes (%) (Auto) 15, Monocytes (%) (Auto) 6, Eosinophils (%) (Auto) 0, Basophils (%) (Auto) 0, Neutrophils # (Auto) 11.5H, Lymphocytes # (Auto) 2.1, Monocytes # (Auto) 0.8, Eosinophils # (Auto) 0.1, Basophils # (Auto) 0.0 QASIM DELGADO DO May 07, 2017 11:52
[2017-05-07] MEDS ORDERED: METOCLOPRAMIDE INJ 10 MG/2 ML (REGLAN) ONE (11:54)
[2017-05-07] MEDS ORDERED: CITRIC ACID/SOB CIT (BICITRA) 30 ML UDC ONE (11:54)
[2017-05-07] MEDS ORDERED: FAMOTIDINE 20MG/2ML IV (PEPCID) ONE (11:54)
--- NOTE | 2017-05-07 11:58 | Progress Note-Pre Operative ---
Pre-Operative Progress Note H&P Reviewed The H&P was reviewed, patient examined and no changes noted per her PCP Dr. Harvey Date Seen by Provider: May 07, 2017 Time Seen by Provider: 11:57 Date H&P Reviewed: May 07, 2017 Time H&P Reviewed: 11:57 Pre-Operative Diagnosis: Failure to progress in labor at term RIZWAN CLARK MD May 07, 2017 11:58 am
[2017-05-07] MEDS ORDERED: TETANUS,DIPTH,PERTUSS P/F (BOOSTRIX) 0.5 ML VIAL IM ONE (12:00)
[2017-05-07] MEDS ORDERED: MEASLES,MUMPS,RUBELLA 1 EA INJ SC ONE (12:00)
[2017-05-07] MEDS ORDERED: ONDANSETRON 4 MG/2 ML (SDV) Z0FRAN IVP PRN (12:00)
[2017-05-07] MEDS ORDERED: PROMETHAZINE INJ 25 MG/ML (PHENERGAN) AMP IM PRN (12:00)
[2017-05-07] MEDS ORDERED: MEPERIDINE (DEMEROL) INJ 100 MG/ML IM PRN (12:00)
[2017-05-07] MEDS ORDERED: D5 LR IV SOLUTION 1,000 ML IV ONE (12:06)
[2017-05-07] MEDS ORDERED: fentaNYL INJECTION 100 MCG/2 ML AMP ONE (12:07)
[2017-05-07] MEDS ORDERED: OXYTOCIN/NORMAL SALINE 1,000 ML IV ONE (12:07)
[2017-05-07] MEDS ORDERED: ONDANSETRON 4 MG/2 ML (SDV) Z0FRAN ONE (12:07)
[2017-05-07] MEDS ORDERED: CLINDAMYCIN 600 MG/4ML (CLEOCIN) VIAL ONE (12:41)
[2017-05-07] MEDS: OXYTOCIN/NORMAL SALINE 500 ML IV SCH (13:20)
[2017-05-07] MEDS: KETOROLAC 30 MG/ML VIAL IVP SCH ×2 (13:56→20:44)
[2017-05-07] MEDS: oxyCODONE/APAP 10/325MG (PERCOCET 10) TABLET PO PRN ×2 (17:01→23:32)
[2017-05-07] MEDS: DOCUSATE SODIUM 100 MG (COLACE) CAP PO SCH (20:44)
--- NOTE | 2017-05-08 01:51 | OPERATIVE REPORT ---
DATE OF SERVICE: 05/07/2017 PREOPERATIVE DIAGNOSIS: Term with oligohydramnios in labor with failure to progress. POSTOPERATIVE DIAGNOSES: Term with oligohydramnios in labor with failure to progress, uterine atony. OPERATIVE PROCEDURE: Primary low transverse delivery of a viable female with Apgars of 8 and 9 at 1 and 5 minutes respectively, weight is 7 pounds 10 ounces. time of 12:49 and a cord blood pH of 7.29. Plumber'S Assistant for delivery is Dr. Morgan. Automotive Drivability Technician for delivery is Dr. Morgan. OPERATIVE DESCRIPTION: With the patient in supine position under satisfactory spinal anesthesia, she was prepped and draped in the usual fashion for abdominal surgery. Guerrero catheter was placed in the urinary bladder. A Pfannenstiel incision made through skin with a scalpel. The patient's abdomen entered in the usual manner. Bladder retractor placed in position, clean scalpel used to make a 4 cm hysterotomy incision transversely across the lower uterine segment that was extended by blunt dissection as well. A small amount of amniotic fluid was released on hysterotomy. The membranes were intact. The membranes were actually ruptured with an Allis clamp releasing a small amount of fluid. Reece forceps were applied to facilitate delivery of a vigorous viable female infant with stats as noted above. There was a single nuchal cord that was easily released. The was bulb suctioned on delivery of the head and again on completion of delivery. The umbilical cord was doubly clamped and the baby taken to the warmer by Dr. Morgan, the hydroelectric station operator and attendance for delivery. Cord bloods were obtained. The placenta delivered spontaneously Cunha. It was normal with a 3-vessel cord. The uterus was exteriorized and anterior wiped clean with wet laparotomy sponge. Uterine incision was then closed with a running lock suture of 2-0 Vicryl. Hemostasis was satisfactory; however, blood loss was at least a liter at this point. The uterus was somewhat boggy, so a modified B-Juarez suture was placed using two #1 chromic sutures in the modified fashion for the B-Juarez. This compressed the uterus nicely and stemmed the blood flow. The uterus was returned to abdominal cavity. All blood clot and debris removed from the abdominal cavity. Sponge and needle counts correct. Hemostasis assured. The anterior parietal peritoneum was closed with running suture of 2-0 Vicryl, rectus muscles were closed with that suture as well, the rectus fascia was closed with 2-0 Vicryl, subcutaneous tissue was closed with 2-0 Vicryl and the skin was stapled. Sponge and needle counts were correct at the end of procedure. Estimated blood loss for procedure was around 1000 mL. The patient tolerated the procedure well and was transferred to the recovery room in stable condition. The infant had been taken stable to the full term nursery under the care of Dr. Morgan. Job ID: [id number] DocumentID: [id number] Dictated Date: 05/07/2017 13:32:09 Carpet Cleaner Date: 05/08/2017 01:51:11 Dictated By: RIZWAN CLARK MD
[2017-05-08 03:37] VITALS: BP 125/81
[2017-05-08] MEDS: CATHETER FLUSH 10 ML SYR IV PRN (03:37)
[2017-05-08] MEDS: KETOROLAC 30 MG/ML VIAL IVP SCH ×2 (03:37→09:51)
[2017-05-08] MEDS: OXYTOCIN/NORMAL SALINE 500 ML IV SCH (08:04)
--- NOTE | 2017-05-08 09:45 | Progress Note-Standard ---
Standard Progress Note Progress Notes/Assess & Plan Date Seen by Provider: May 08, 2017 Time Seen by Provider: 09:44 Progress/Assessment & Plan This patient is without complaint. She is ambulating, voiding, tolerating by mouth well, has good pain control. She denies chest pain, denies shortness breath, denies nausea vomiting, and denies headache. Vital signs are stable. Patient is afebrile. Vital Signs Date Time Temp Pulse Resp B/P (MAP) Pulse Ox O2 Delivery O2 Flow Rate FiO2 05/08/17 03:37 96.6 89 20 125/81 (96) 98 Room Air 05/07/17 23:32 97.9 93 20 133/77 (95) 98 Room Air 05/07/17 20:44 98.4 90 20 130/78 (95) 98 Room Air 05/07/17 18:25 99.0 107 20 132/81 (98) 97 Room Air 05/07/17 12:00 90 20 122/80 (94) Room Air 05/07/17 11:30 88 20 134/84 (101) Room Air 05/07/17 11:00 83 18 128/84 (99) Room Air 05/07/17 10:30 79 18 131/81 (98) Room Air 05/07/17 10:00 81 18 127/77 (94) Room Air I & O 05/08/17 07:00 Intake Total 2300 ml Output Total 1700 ml Balance 600 ml Vital signs are stable. Patient is afebrile. Abdomen is benign. The surgical incision is clean dry and intact. Streaming show no clubbing cyanosis. There is no Homans sign. Assessment and plan is operative day number 1 status post primary doing well. Plan is for routine convalescence care today and consider for discharge home tomorrow RIZWAN CLARK MD May 08, 2017 9:45 am
[2017-05-08 09:46] VITALS: BP 124/80
[2017-05-08] MEDS: DOCUSATE SODIUM 100 MG (COLACE) CAP PO SCH ×2 (09:49→22:33)
[2017-05-08] MEDS: IBUPROFEN 800 MG (MOTRIN) TAB PO SCH ×3 (09:49→22:33)
[2017-05-08] MEDS: oxyCODONE/APAP 10/325MG (PERCOCET 10) TABLET PO PRN ×2 (09:49→23:35)
[2017-05-08] MEDS ORDERED: DOCU100C37 PO (09:50)
[2017-05-08] MEDS ORDERED: IBUP-1780 PO (09:50)
[2017-05-08] MEDS ORDERED: OXYC-465 PO (09:50)
--- NOTE | 2017-05-08 09:51 | Discharge Instructions ---
Discharge Instructions Discharge Medications New, Converted or Re-Newed RX: RX on Chart Patient Instructions Patient Instructions: As directed Return to The [facility] For: As directed Activity & Diet Discharge Diet: No Restrictions Activity as Tolerated: No Orders-Post D/C & Referrals Follow Up Appt: RTC on Sunday, May 14, 2017 at 930 a.m. for incision check Call to make follow up appt. for patient with Dr. Morgan in 6 weeks. Wound Care: Remove ankur, apply benzoin and steri strips. Activity Per routine post instructions. Diet as tolerated Patient may shower or tub bathe as desired. Continue home meds RIZWAN CLARK MD May 08, 2017 9:51 am
[2017-05-08] MEDS ORDERED: ONDANSETRON 8 MG (ZOFRAN) ORAL DISSOLVE TAB PO PRN (10:45)
[2017-05-08 12:20] VITALS: BP 128/82
[2017-05-08 16:11] VITALS: BP 126/80
--- NOTE | 2017-05-08 16:57 | Anesthesia-Regional Post-Op ---
Regional Patient Condition Mental Status: Alert, Oriented x3 Circulation: Same as Pre-Op Headache: Absent Sensation: Full Recovery Motor Block: Absent Post Op Complications Complications None Follow Up Care/Instructions Patient Instructions None needed. Anesthesia/Patient Condition Patient is doing well, no complaints, stable vital signs, no apparent adverse anesthesia problems. No complications reported per nursing. KARL PEREZ CRNA May 08, 2017 16:57
[2017-05-08 22:33] VITALS: BP 118/71
[2017-05-09 04:18] VITALS: BP 123/70
[2017-05-09] MEDS: IBUPROFEN 800 MG (MOTRIN) TAB PO SCH ×2 (04:18→09:46)
--- NOTE | 2017-05-09 08:36 | Progress Note-Standard ---
Standard Progress Note Progress Notes/Assess & Plan Date Seen by Provider: May 09, 2017 Time Seen by Provider: 08:34 Progress/Assessment & Plan This patient is without complaint. She is ambulating, voiding, tolerating by mouth well, has good pain control. She denies chest pain, denies shortness breath, denies nausea vomiting, and denies headache. Vital signs are stable. Patient is afebrile. Vital Signs Date Time Temp Pulse Resp B/P (MAP) Pulse Ox O2 Delivery O2 Flow Rate FiO2 05/08/17 03:37 96.6 89 20 125/81 (96) 98 Room Air 05/07/17 23:32 97.9 93 20 133/77 (95) 98 Room Air 05/07/17 20:44 98.4 90 20 130/78 (95) 98 Room Air 05/07/17 18:25 99.0 107 20 132/81 (98) 97 Room Air 05/07/17 12:00 90 20 122/80 (94) Room Air 05/07/17 11:30 88 20 134/84 (101) Room Air 05/07/17 11:00 83 18 128/84 (99) Room Air 05/07/17 10:30 79 18 131/81 (98) Room Air 05/07/17 10:00 81 18 127/77 (94) Room Air I & O 05/08/17 07:00 Intake Total 2300 ml Output Total 1700 ml Balance 600 ml Vital signs are stable. Patient is afebrile. Abdomen is benign. The surgical incision is clean dry and intact. Streaming show no clubbing cyanosis. There is no Homans sign. Assessment and plan is operative day number 1 status post primary doing well. Plan is for routine convalescence care today and consider for discharge home tomorrow May 09, 2017 Patient without complaint. She is ambulating, voiding, tolerating by mouth, has good pain control, and is requesting discharge home. Vital Signs Date Time Temp Pulse Resp B/P (MAP) Pulse Ox O2 Delivery O2 Flow Rate FiO2 05/09/17 04:18 98.1 77 18 123/70 (87) 98 Room Air 05/08/17 22:33 98.0 84 18 118/71 (87) 98 Room Air 05/08/17 16:11 97.6 95 18 126/80 (95) 98 Room Air 05/08/17 12:20 97.1 104 18 128/82 (97) 98 Room Air 05/08/17 09:46 98.4 107 18 124/80 (95) 97 Room Air I & O 05/09/17 07:00 Intake Total 2255 ml Output Total 2700 ml Balance -445 ml Vital signs are stable. Patient is afebrile. fundus is firm below the umbilicus and nontender. The incision is clean dry and intact. Extremities show no clubbing or cyanosis. There is no Homans sign. Assessment and plan postoperative day number 2 status post primary doing well. Plan is for routine convalescence care and discharge home RIZWAN CLARK MD May 09, 2017 8:35 am
[2017-05-09] MEDS: oxyCODONE/APAP 10/325MG (PERCOCET 10) TABLET PO PRN (09:46)
[2017-05-09] MEDS: DOCUSATE SODIUM 100 MG (COLACE) CAP PO SCH (09:46)
[2017-05-09 09:51] VITALS: BP 125/78
== END 2017-05-09 14:30 | disposition home or self-care (01) | DRG 766 ==
LOC: LDRP 17:53
PROVIDERS: ADMIT Family Medicine; ATTEND Family Medicine
PROC: 3E0P7GC Introduction of Other Therapeutic Substance into Female Reproductive, Via Natural or Artificial Opening (ICD-10-PCS; 2017-05-07)
PROC: 10D00Z1 Extraction of Products of Conception, Low, Open Approach (ICD-10-PCS; principal; 2017-05-07 12:16)
DX: O41.03X0 Oligohydramnios, third trimester, not applicable or unspecified (principal); O99.824 Streptococcus B carrier state complicating childbirth; O62.0 Primary inadequate contractions; O61.0 Failed medical induction of labor; Z3A.38 38 weeks gestation of pregnancy; Z37.0 Single live birth
CPT/HCPCS: 36415; 85025; 86850; 86900; 86901; 94664

== ENCOUNTER → 2017-05-06 | Outpatient (CLI) | payer OTHER, MEDICAID ==
[~2017-05-06] MED LIST changes: -CATHETER FLUSH 10 ML SYR IV PRN; +DOCU100C37 PO; +IBUP-1780 PO; -IOHEXOL 350 MG/ML 100 ML (OMNIPAQUE 350) VIAL IV ONE; -NS 100 ML (IVPB) BAG IV ONE; +OXYC-465 PO; +PREN-53 PO
--- NOTE | 2017-05-06 14:18 | Diagnostic Imaging Report ---
INDICATION: Oligohydramnios. TECHNIQUE: Multiple real-time grayscale images were obtained over the gravid uterus. COMPARISON: None. FINDINGS: There is a single live fetus in a cephalic presentation. The placenta is anterior. Amniotic fluid volume is low. Amniotic fluid index is 5.1 cm. The largest pocket of fluid was noted in the right upper quadrant at 1.7 cm. heart rate was recorded at 146 beats per minute. survey is limited due to low amniotic fluid volume. No gross abnormality is seen. Biophysical profile was performed with a score of 6/8. A 2-point deduction was given for low amniotic fluid. Biometrical measurements are as follows: Biparietal 9.4 cm, age 38 weeks 1 days. Head circumference 33.7 cm, age 38 weeks 4 days. Abdominal circumference 34.0 cm, age 38 weeks 0 days. Femur length 7.3 cm, age 37 weeks 4 days. Sonographic estimate age: 38 weeks 1 days. Sonographic estimated date of delivery: 05/19/17. Estimated Weight: 3350 gm (+/- 489 gm). LMP percentile: 53%. heart rate: 146 beats per minute. number: 1 of 1. IMPRESSION: Single live IUP at 38 weeks gestational age with an estimated date of confinement sonographically of 05/19/2017. Note is made of oligohydramnios. Biophysical profile score is 6/8. Dictated by: Dictated on workstation # [id number]
== END ==
LOC: RAD 12:09
PROVIDERS: ATTEND Nurse Practitioner Family
DX: O41.03X0 Oligohydramnios, third trimester, not applicable or unspecified (principal); O36.63X0 Maternal care for excessive fetal growth, third trimester, not applicable or unspecified; Z3A.38 38 weeks gestation of pregnancy
CPT/HCPCS: 76805; 76819